=== PATIENT | female | born 1965 | race Caucasian/White ===

== ENCOUNTER 2021-04-01 14:40 | Outpatient (CLI) | payer OTHER | END 2021-04-01 14:41 | disposition home or self-care (01) | LOC: BICULT 14:40 | PROVIDERS: ATTEND Internal Medicine Cardiovascular Disease | DX: E04.1 Nontoxic single thyroid nodule (principal) | CPT/HCPCS: 76536 ==

== ENCOUNTER 2021-04-03 03:50 | Observation (INO) | payer OTHER ==
[2021-04-03 05:21] VITALS: BMI 35.7
[2021-04-03] MEDS ORDERED: Dextrose 50% Abboject 50 ML SYRINGE SLOW IVP PRN (05:28)
[2021-04-03] MEDS ORDERED: Acetaminophen 325 MG TAB PO PRN (05:28)
[2021-04-03] MEDS ORDERED: Dextrose 5% in Water 1,000 ML IV PRN (05:28)
[2021-04-03] MEDS ORDERED: Calcium Carbonate 500 MG ChewTAB PO PRN (05:28)
[2021-04-03] MEDS ORDERED: Ondansetron ODT 4 MG TAB PO PRN (05:28)
[2021-04-03] MEDS ORDERED: Nitroglycerin 0.4 MG TAB (25 Tab Bottle) SL PRN (05:28)
[2021-04-03] MEDS ORDERED: HumaLOG 300 UNITS/3 ML VIAL SC PRN ×2 (05:28)
[2021-04-03] MEDS ORDERED: ALPRAZolam 1 MG TAB PO PRN (06:24)
[2021-04-03] MEDS ORDERED: Loratadine 10 MG TAB PO PRN (06:26)
[2021-04-03 06:58] LABS: Hemoglobin A1c 6.2 % (4.0-6.0)
[2021-04-03 07:13] LABS: Cardiac Risk 2.9 (Less than 4.5)
[2021-04-03 07:18] LABS: Troponin I Less than 0.010 ng/mL (< 0.028)
[2021-04-03] MEDS: Lantus 1000 UNITS/10 ML VIAL SC SCH ×2 (08:58→09:22)
[2021-04-03] MEDS ORDERED: Aspirin 81 mg Enteric Coated Tablet PO SCH (09:00)
[2021-04-03] MEDS ORDERED: Metoprolol Tartrate 25 MG TAB PO SCH (09:00)
[2021-04-03] MEDS ORDERED: METFORMIN HCL PO SCH (09:00)
[2021-04-03] MEDS ORDERED: Clopidogrel Bisulfate 75 MG TAB PO SCH (09:00)
[2021-04-03] MEDS ORDERED: EMPAGLIFLOZIN PO SCH (09:00)
[2021-04-03] MEDS ORDERED: Lisinopril 20 MG TAB PO SCH (09:00)
[2021-04-03] MEDS ORDERED: Enoxaparin Sodium 40 MG/0.4 ML SYRINGE SC SCH (09:00)
[2021-04-03 10:13] LABS: Troponin I Less than 0.010 ng/mL (< 0.028)
[2021-04-03 15:40] VITALS: BP 117/57; TEMP 98
[2021-04-03] MEDS ORDERED: TOUJEO SC SCH (21:00)
[2021-04-06] MEDS ORDERED: FLU VACC QS2021-22(6MOS UP)/PF 60 MCG/0.5 ML SYRINGE IM ONE (09:00)
== END 2021-04-03 17:59 | disposition home or self-care (01) ==
LOC: 2SW 05:01 → OBSVTOIN 05:28 → INTOOBSV 05:28
PROVIDERS: ADMIT Family Medicine; ATTEND Family Medicine
DX: R07.89 Other chest pain (principal); U07.1 COVID-19; I25.10 Atherosclerotic heart disease of native coronary artery without angina pectoris; G20 Parkinson's disease; I10 Essential (primary) hypertension; E78.5 Hyperlipidemia, unspecified; E11.9 Type 2 diabetes mellitus without complications; M79.7 Fibromyalgia; E04.2 Nontoxic multinodular goiter; K21.9 Gastro-esophageal reflux disease without esophagitis; Z86.73 Personal history of transient ischemic attack (TIA), and cerebral infarction without residual deficits; Z79.02 Long term (current) use of antithrombotics/antiplatelets; Z79.4 Long term (current) use of insulin; Z79.82 Long term (current) use of aspirin; Z79.84 Long term (current) use of oral hypoglycemic drugs; Z79.899 Other long term (current) drug therapy; Z88.2 Allergy status to sulfonamides; Z88.5 Allergy status to narcotic agent; Z88.6 Allergy status to analgesic agent; Z88.8 Allergy status to other drugs, medicaments and biological substances; Z91.013 Allergy to seafood; Z91.040 Latex allergy status; Z95.5 Presence of coronary angioplasty implant and graft
CPT/HCPCS: 36415; 36416; 76536; 80061; 83036; 84443; 96372; G0378; J1650; J1815

== ENCOUNTER 2021-05-05 07:47 | Outpatient (CLI) | payer OTHER | END 2021-05-05 07:48 | disposition home or self-care (01) | LOC: TBSIIMAG 07:47 | PROVIDERS: ATTEND Neurological Surgery | DX: M54.50 Low back pain, unspecified (principal); M47.816 Spondylosis without myelopathy or radiculopathy, lumbar region; M47.817 Spondylosis without myelopathy or radiculopathy, lumbosacral region | CPT/HCPCS: 72148 ==

== ENCOUNTER 2021-06-01 09:26 | Outpatient (CLI) | payer OTHER ==
[2021-06-01] MEDS ORDERED: Iopamidol-370 76% 500 ML 1 ML ONE (11:27)
== END 2021-06-01 09:27 | disposition home or self-care (01) ==
LOC: CT 09:26
PROVIDERS: ATTEND Family Medicine
DX: R91.8 Other nonspecific abnormal finding of lung field (principal)
CPT/HCPCS: 74178